=== PATIENT | male | born 1965 | race Caucasian/White ===

== ENCOUNTER 2019-01-28 13:46 | Inpatient (IN) | payer MEDICARE, MEDICAID ==
[~2019-01-28] VITALS: Ht 180.3 cm; Wt 85.8 kg
[~2019-01-28 13:46] MED LIST: ALBU2.5V NEB; PRED10TA PO
[2019-01-28] MEDS ORDERED: SODIUM CHLORIDE 0.9% 1,000ML IVBOLUS ONE (14:00)
[2019-01-28] MEDS ORDERED: SODIUM CHLORIDE FLUSH 10ML SYR IVF ONE (14:00)
--- NOTE | 2019-01-28 14:12 | NUR ---
PATIENT BIB [facility] FOR SI WITH PLAN TO OD, PATIENT SENT TO [facility] BY [facility], PD SENT PATIENT TO [facility] FOR BEING VERBALLY AGGRESSIVE. PATIENT UNCOOPERATIVE AT TIMES, EASILY REDIRECTED, ASSISTED TO BATHROOM, UNABLE TO URINATE FOR URINE SAMPLE, A+OX4. MULTIPLE BRUISING NOTED TO PATIENT'S UPPER/LOWER BACK. PATIENT 94% UPON ARRIVAL, DROPPED TO 80% RA, NOW 92% ON 2L NC. COMMUTATOR TESTER ON PATIENT, AWAITING MD ORDERS, CALL LIGHT WITHIN REACH.
[2019-01-28 14:27] LABS: BASOPHILS # (AUTO) 0.05 x10^3/uL (0-0.1); BASOPHILS % (AUTO) 1 % (0-1); EOSINOPHILS # (AUTO) 0.11 x10^3/uL (0-0.4); EOSINOPHILS % (AUTO) 1 % (1-7); LYMPHOCYTES # (AUTO) 1.85 x10^3/uL (1-3.4); LYMPHOCYTES % (AUTO) 17 % (22-44); MD NO; MEAN CORPUSCULAR HEMOGLOBIN 31.6 pg (27.5-34.5); MEAN CORPUSCULAR HGB CONC 33.6 g/dL (33.2-36.2); MEAN CORPUSCULAR VOLUME 93.9 fL (81-97); MEAN PLATELET VOLUME 7.6 fL (7.4-10.4); MONOCYTES # (AUTO) 0.55 x10^3/uL (0.2-0.8); MONOCYTES % (AUTO) 5 % (2-9); NEUTROPHILS # (AUTO) 8.06 x10^3/uL (1.8-6.8); NEUTROPHILS % (AUTO) 76 % (42-75); PLATELET COUNT 164 x10^3/uL (130-400); RED BLOOD COUNT 4.58 x10^6/uL (4.38-5.82); RED CELL DISTRIBUTION WIDTH 14.9 % (9.4-14.8)
--- NOTE | 2019-01-28 14:49 | NUR ---
PATIENT ASSISTED TO BEDSIDE, SMALL AMOUNT OF URINE COLLECTED AND WALKED TO LAB. PATIENT BACK TO BED, MULTIPLE ATTEMPTS TO GET UP OUT OF BED, PATIENT EDUCATED REGARDING NEED TO STAY IN BED DUE TO UNSTEADY GAIT, IV ESTABLISHED, AWAITING CT.
[2019-01-28 14:57] LABS: ANION GAP 11 mmol/L (5-15); CALCIUM 7.9 mg/dL (8.5-10.1); CHLORIDE 103 mmol/L (98-107)
[2019-01-28 15:01] LABS: SALICYLATE LEVEL 6.2 mg/dL (2.8-20.0)
--- NOTE | 2019-01-28 15:15 | NUR ---
PATIENT RIPPED CORDS OFF AND WALKED TO THE BATHROOM PER SITTER. PATIENT LAYING BACK IN BED, CT AWAITING LAB RESUTLS PRIOR TO CT. PATIENT UP NEXT. PATIENT NOW RESTING IN GURNEY, RESP EVEN/UNLABORED.
[2019-01-28 15:25] LABS: CULTURE INDICATED? YES; MICROSCOPIC INDICATED
--- NOTE | 2019-01-28 15:27 | NUR ---
PATIENT TO CT AT THIS TIME VIA JAZMINE HERNANDEZ.
[2019-01-28 15:34] LABS: AMPHETAMINE SCREEN, URINE Negative (Negative); BARBITURATE SCREEN, URINE Negative (Negative); BENZODIAZEPINE SCREEN, URINE Negative (Negative); CANNABINOID SCREEN, URINE Negative (Negative); COCAINE SCREEN, URINE Negative (Negative); METHADONE SCREEN, URINE Negative (Negative); OPIATE SCREEN, URINE Negative (Negative)
[2019-01-28] MEDS ORDERED: OMNIPAQUE 350 MG/ML, 100ML BOTTLE ONE (15:54)
--- NOTE | 2019-01-28 16:42 | NUR ---
BREATHALYZER-0.293 AT THIS TIME, PATIENT REPORTING BRUISING CAME FROM FALLING DOWN FLIGHT OF 6 STAIRS, VS UPDATED IN CHART, SITTER AT DOORWAY. PATIENT A+OX4. PATIENT REPORTS SI. RESP EVEN/UNLABORED, PATIENT PROVIDED CRACKERS WITH PEANUT BUTTER, DIET TRAY ORDERED PER REQUEST, ERP OKAY'D PATIENT TO HAVE FOOD. NADN. NO ADDITIONAL NEEDS AT THIS TIME.
--- NOTE | 2019-01-28 16:47 | NUR ---
PATIENT TO HAVE TELEPSYCH WHEN SOBER.
--- NOTE | 2019-01-28 17:30 | NUR ---
PATIENT RIPPED EVERYTHING OFF AT AMBULATED TO BATHROOM WITH SLOW STEADY GAIT. PATIENT BACK TO BED, ALL MONITORS TAKEN OFF DUE TO FALL HAZARD, GARAGE DOORS PULLED DOWN FOR SAFETY, AWAITING PATIENT TO BE SOBER PRIOR TO TELEPSYCH. ED DIET TRAY PROVIDED PER REQUEST, NO ADDITIONAL NEEDS AT THIS TIME.
--- NOTE | 2019-01-28 17:32 | NUR ---
SPOKE TO ERP, PATIENT 88-89% RA, PATIENT OKAY TO BE OFF OXYGEN PER ERP. BREATHING TREATMENT ORDERED. AWAITING RT. PATIENT SITTING IN GURNEY, EATING DINNER, RESP EVEN/UNLABORED, SKIN PINK, WARM, DRY. JAZMINE. Addendum: 01/28/19 at 1746 by CALDERON HX OF COPD, PATIENT ALWAYS AT 88-89% RA PER PATIENT.
[2019-01-28] MEDS: PLEASE ENTER HEIGHT AND WEIGHT MC SCH (17:48)
--- NOTE | 2019-01-28 17:54 | NUR ---
MEDICATION ADMINISTERED PER ORDER, RT AT BEDSIDE, NADN. XRAY ORDERED, SITTER REMAINS AT DOORWAY WITH PATIENT IN SIGHT.
[2019-01-28] MEDS ORDERED: ALBUTEROL/IPRATROPIUM 2.5MG/0.5MG, 3 ML NPPB ONE (18:00)
--- NOTE | 2019-01-28 19:07 | NUR ---
Pt report from Fadumo edwards. This rn to assume care of pt. No immediate needs from pt. Kat lnadrum in place. [facility].
--- NOTE | 2019-01-28 19:10 | NUR ---
PATIENT ANXIOUS, SITTING IN GURNEY, REPORT TO JENNIE PERDOMO. CONOR TO SPEAK WITH MD REGARDING ORDER FOR PRN MEDICATION. NADN. RESP EVEN/UNLABORED. SITTER REMAINS AT BEDSIDE WITH PATIENT IN SIGHT.
--- NOTE | 2019-01-28 19:41 | NUR ---
Pt states hx of sz w/ withdrawal to etoh. Goal for pt is to sober before psych re-evaluation. Pt appearing increasingling anxious, sweating, and c/o of miller. notified. Awaiting new orders.
[2019-01-28] MEDS ORDERED: THIAMINE 100MG TABLET PO ONE (20:00)
[2019-01-28] MEDS ORDERED: LORazepam 2 MG/ML, 1ML ONE (20:01)
[2019-01-28] MEDS ORDERED: THIAMINE 100MG TABLET ONE (20:01)
[2019-01-28] MEDS: LORazepam 2 MG/ML, 1ML IVPush PRN ×2 (20:05→20:30)
--- NOTE | 2019-01-28 20:09 | NUR ---
Medicated per mar. Very pleasant demeanor at this time. No other concerns from pt.
--- NOTE | 2019-01-28 21:12 | NUR ---
Pt watching tv. No apparent signs of imminent d/t.
--- NOTE | 2019-01-28 21:53 | NUR ---
3E PSYCHIATRIST DECLINED ADMISSION PT "WILL DISRUPT THE MILIEU"
--- NOTE | 2019-01-28 22:25 | NUR ---
Pt watching tv. No apparent signs of imminent d/t. Pt no longer sweating and does not think he "feels any tremors coming."
--- NOTE | 2019-01-28 23:56 | NUR ---
Pt watching tv. No apparent signs of imminent d/t. Pt no longer sweating and does not think he "feels any tremors coming."
--- NOTE | 2019-01-29 00:41 | NUR ---
This rn attempted to breathalyze pt. Pt educated multiple times on how to utilize breathalyzer. Pt not successful multiple times. aware.
--- NOTE | 2019-01-29 01:57 | NUR ---
NADN. No immediate needs from pt. Sleeping comfortably. Rr even and unlabored.
--- NOTE | 2019-01-29 02:58 | NUR ---
NADN. No immediate needs from pt. Sleeping comfortably. Rr even and unlabored.
--- NOTE | 2019-01-29 03:12 | NUR ---
This rn attempted to breathalyze. Pt not able to perform appropriately. Awaiting under legal limit for telepsych.
--- NOTE | 2019-01-29 04:04 | NUR ---
NADN. No immediate needs from pt. Sleeping comfortably. Rr even and unlabored.
--- NOTE | 2019-01-29 05:18 | NUR ---
NADN. No immediate needs from pt. Sleeping comfortably. Rr even and unlabored.
--- NOTE | 2019-01-29 05:26 | NUR ---
Soc initiated at this time.
--- NOTE | 2019-01-29 05:54 | NUR ---
Soc called back. Pt recommended to be put on a hold. Awaiting ERP dispo.
--- NOTE | 2019-01-29 05:56 | NUR ---
Hospital bed requested.
--- NOTE | 2019-01-29 06:51 | NUR ---
REPORT TAKEN FROM JENNIE PERDOMO. PT RESTING ON [facility]. RESPIRATIONS EVEN AND UNLABORED. JAZMINE. SITTER IN HALLWAY. ROOM SECURE. HOSPITAL BED HAS BEEN ORDERED. MEAL TRAY HAS BEEN ORDERED.
[2019-01-29] MEDS: PLEASE ENTER HEIGHT AND WEIGHT MC SCH (07:29)
[2019-01-29] MEDS ORDERED: LORazepam 2 MG/ML, 1ML ONE ×2 (07:32→08:37)
[2019-01-29] MEDS: LORazepam 2 MG/ML, 1ML IVPush PRN ×2 (07:33→08:39)
--- NOTE | 2019-01-29 07:36 | NUR ---
PT MEDICATED PER EMAR. RESTING ON GURNEY. NADN. PROVIDED WITH WATER. SITTER IN HALLWAY. ROOM SECURE.
--- NOTE | 2019-01-29 08:34 | NUR ---
PT STILL WITH TREMORS STATING HE IS NAUSEAS AND HAS SKINNER. WILL MEDICATE WITH 1 MORE MG OF ATIVAN. ATTEMPTING TO EAT BREAKFAST NOW. SITTER IN HALLWAY. ROOM SECURE.
--- NOTE | 2019-01-29 08:42 | NUR ---
PT MEDICATED PER EMAR. RESTING ON GURNEY. NADN. DENIES FURTHER NEEDS. SITTER IN HALLWAY. ROOM SECURE. PT CONTINUES TO ATTEMPT TO EAT BREAKFAST.
--- NOTE | 2019-01-29 08:55 | NUR ---
TASK RN: PT RESTING ON [facility]ARY. JAZMINE. SITTER REMAINS AT BEDSIDE. ROOM REMAINS SECURE.
--- NOTE | 2019-01-29 09:19 | NUR ---
PT AMBULATED WITH UNSTEADY GAIT TO BATHROOM- HELPED WITH 1 ASSIST. PT NOW RESTING ON GURNEY. CONNECTED TO MONITOR. PT CONTINUES TO BE TREMULOUS. MD AWARE AND COMING TO ASSESS PT. PT STATES HE CONTINUES TO FEEL NAUSEAS AND HAS A HAD. PT DIAPHORETIC. TACHYCARDIC. RESTING ON GURNEY. SITTER IN HALLWAY.
--- NOTE | 2019-01-29 09:23 | NUR ---
MD AT BEDSIDE ASSESSING PT NOW. PT PLACED ON 1L NC TO KEEP SATS AT 89-90% PER MD ORDER.
--- NOTE | 2019-01-29 09:58 | NUR ---
PT ASLEEP ON [facility]. NADN. [place]. SITTER IN HALLWAY.
[2019-01-29] MEDS ORDERED: SODIUM CHLORIDE FLUSH 10ML SYR IVF PRN (10:00)
--- NOTE | 2019-01-29 10:50 | NUR ---
REPORT GIVEN TO JENNIE GREENBERG.
[2019-01-29 11:29] VITALS: BP 132/82
[2019-01-29] MEDS ORDERED: RISP1SOL5 IM/IV (14:52)
[2019-01-29] MEDS ORDERED: TRAZ-137 PO (14:54)
[2019-01-29 15:14] VITALS: BP 135/76
[2019-01-29] MEDS ORDERED: DOCUSATE 100 MG CAPSULE PO PRN (15:30)
[2019-01-29] MEDS ORDERED: POLYETHYLENE GLYCOL 17 GM PACKET PO PRN (15:30)
[2019-01-29] MEDS ORDERED: LORazepam 2 MG/ML, 1ML IV PRN ×4 (15:30)
[2019-01-29] MEDS ORDERED: LORazepam 1MG TABLET PO PRN ×3 (15:30)
[2019-01-29] MEDS ORDERED: BISACODYL 10 MG SUPP PR PRN (15:30)
[2019-01-29] MEDS ORDERED: ONDANSETRON ODT 4 MG PO PRN (15:30)
[2019-01-29] MEDS ORDERED: THIAMINE 200 MG, MVI ADULT 10 ML, FOLIC ACID 1 MG in D5%-0.9% NACL 1,000 ML IV SCH (15:30)
[2019-01-29] MEDS ORDERED: hydrALAzine 20 MG/ML, 1ML IVPush PRN (15:30)
[2019-01-29] MEDS ORDERED: ONDANSETRON 2MG/ML, 2ML IVPush PRN (15:30)
[2019-01-29 15:47] LABS: FREE T4 (FREE THYROXINE) 0.86 ng/dL (0.76-1.46)
[2019-01-29] MEDS: HEPARIN 5,000 UNITS/ML, 1ML SQ SCH (15:55)
[2019-01-29] MEDS: NICOTINE 7 MG/24 HR PATCH.TD24 TD SCH (15:57)
[2019-01-29 16:00] LABS: HEMOGLOBIN A1C 5.4 % (4.2-6.3)
[2019-01-29] MEDS ORDERED: ALBUTEROL/IPRATROPIUM 2.5MG/0.5MG, 3 ML NPPB PRN (16:30)
[2019-01-29 19:59] VITALS: BP 144/83
[2019-01-29] MEDS: TRAZODONE 100MG TABLET PO SCH (20:34)
[2019-01-29] MEDS: LORazepam 1MG TABLET PO PRN (20:39)
[2019-01-30] MEDS: HEPARIN 5,000 UNITS/ML, 1ML SQ SCH ×3 (00:24→16:40)
[2019-01-30 01:06] VITALS: BP 114/70
[2019-01-30 05:18] LABS: BASOPHILS # (AUTO) 0.02 x10^3/uL (0-0.1); BASOPHILS % (AUTO) 0 % (0-1); EOSINOPHILS # (AUTO) 0.17 x10^3/uL (0-0.4); EOSINOPHILS % (AUTO) 3 % (1-7); LYMPHOCYTES # (AUTO) 1.76 x10^3/uL (1-3.4); LYMPHOCYTES % (AUTO) 28 % (22-44); MD NO; MEAN CORPUSCULAR HEMOGLOBIN 31.9 pg (27.5-34.5); MEAN CORPUSCULAR HGB CONC 33.4 g/dL (33.2-36.2); MEAN CORPUSCULAR VOLUME 95.3 fL (81-97); MEAN PLATELET VOLUME 8.4 fL (7.4-10.4); MONOCYTES # (AUTO) 0.37 x10^3/uL (0.2-0.8); MONOCYTES % (AUTO) 6 % (2-9); NEUTROPHILS # (AUTO) 4.08 x10^3/uL (1.8-6.8); NEUTROPHILS % (AUTO) 64 % (42-75); PLATELET COUNT 122 x10^3/uL (130-400); RED BLOOD COUNT 3.99 x10^6/uL (4.38-5.82); RED CELL DISTRIBUTION WIDTH 15.5 % (9.4-14.8)
[2019-01-30 05:30] LABS: ALBUMIN 3.1 g/dL (3.4-5.0); ANION GAP 7 mmol/L (5-15); CALCIUM 7.7 mg/dL (8.5-10.1); CHLORIDE 104 mmol/L (98-107)
[2019-01-30 05:37] LABS: ALANINE AMINOTRANSFERASE 224 U/L (12-78); ALKALINE PHOSPHATASE 76 U/L (45-117); BILIRUBIN,TOTAL 1.4 mg/dL (0.2-1.0); CHOL/HDL RATIO 2.4; CHOLESTEROL, TOTAL 151 mg/dL (140-239); CREATININE 0.62 mg/dL (0.7-1.3); HDL CHOL % 41 % (26-37); HDL CHOLESTEROL (DIRECT) 62 mg/dL (40-60); LDL CHOLESTEROL,CALCULATED 74 mg/dL (54-169); LDL/HDL RATIO 1.2 (0.5-3.0); TOTAL PROTEIN 6.2 g/dL (6.4-8.2); TRIGLYCERIDES 74 mg/dL (50-200); VLDL CHOLESTEROL 15 mg/dL (0-25)
[2019-01-30 06:47] VITALS: BP 134/77
[2019-01-30 12:18] VITALS: BP 115/76
[2019-01-30] MEDS: FOLIC ACID 1 MG TABLET PO SCH (12:35)
[2019-01-30] MEDS: THIAMINE 100MG TABLET PO SCH (12:35)
[2019-01-30] MEDS: MULTIVITAMIN 1 TABLET PO SCH (12:36)
[2019-01-30] MEDS: LORazepam 1MG TABLET PO PRN (13:07)
[2019-01-30 13:59] VITALS: BP 119/75
[2019-01-30] MEDS: PROMETHAZINE 25 MG/ML, 1ML IM PRN (14:47)
[2019-01-30] MEDS: NICOTINE 7 MG/24 HR PATCH.TD24 TD SCH ×2 (15:27→21:37)
[2019-01-30] MEDS: LORazepam 2 MG/ML, 1ML IV PRN ×3 (17:50→21:34)
[2019-01-30 19:46] VITALS: BP 117/76
[2019-01-30] MEDS: TRAZODONE 100MG TABLET PO SCH (20:02)
[2019-01-31] MEDS: HEPARIN 5,000 UNITS/ML, 1ML SQ SCH ×4 (00:20→16:00)
[2019-01-31 00:49] VITALS: BP 120/80
[2019-01-31 08:13] VITALS: BP 114/74
[2019-01-31] MEDS: SERTRALINE 50MG TABLET PO SCH (09:59)
[2019-01-31] MEDS: BUPROPION SR 150 MG TABLET PO SCH (09:59)
[2019-01-31] MEDS: FOLIC ACID 1 MG TABLET PO SCH (09:59)
[2019-01-31] MEDS: MULTIVITAMIN 1 TABLET PO SCH (09:59)
[2019-01-31] MEDS: THIAMINE 100MG TABLET PO SCH (09:59)
[2019-01-31 10:42] LABS: ALANINE AMINOTRANSFERASE 200 U/L (12-78); ALBUMIN 3.2 g/dL (3.4-5.0); ANION GAP 7 mmol/L (5-15); CHLORIDE 106 mmol/L (98-107); CREATININE 0.56 mg/dL (0.7-1.3)
[2019-01-31 10:44] LABS: ALKALINE PHOSPHATASE 73 U/L (45-117); BILIRUBIN,TOTAL 0.9 mg/dL (0.2-1.0); TOTAL PROTEIN 6.6 g/dL (6.4-8.2)
[2019-01-31] MEDS: PROMETHAZINE 25 MG/ML, 1ML IM PRN (11:41)
[2019-01-31 12:07] VITALS: BP 100/66
[2019-01-31] MEDS: LORazepam 0.5MG TABLET PO PRN (15:42)
[2019-01-31 19:33] VITALS: BP 110/70
[2019-01-31] MEDS: OXYcodone IR 5MG TABLET PO PRN (19:48)
[2019-01-31] MEDS: TRAZODONE 100MG TABLET PO SCH (20:03)
[2019-01-31] MEDS: NICOTINE 7 MG/24 HR PATCH.TD24 TD SCH (20:05)
[2019-02-01 01:31] VITALS: BP 109/72
[2019-02-01] MEDS: OXYcodone IR 5MG TABLET PO PRN (05:48)
[2019-02-01 06:14] VITALS: BP 89/53
[2019-02-01 06:28] VITALS: BP 93/55
[2019-02-01 07:54] VITALS: BP 91/58
[2019-02-01] MEDS: THIAMINE 100MG TABLET PO SCH (08:47)
[2019-02-01] MEDS: BUPROPION SR 150 MG TABLET PO SCH (08:47)
[2019-02-01] MEDS: FOLIC ACID 1 MG TABLET PO SCH (08:47)
[2019-02-01] MEDS: SERTRALINE 50MG TABLET PO SCH (08:47)
[2019-02-01] MEDS: MULTIVITAMIN 1 TABLET PO SCH (08:47)
[2019-02-01] MEDS: HEPARIN 5,000 UNITS/ML, 1ML SQ SCH ×4 (08:47→23:44)
[2019-02-01] MEDS: LORazepam 0.5MG TABLET PO PRN (12:20)
[2019-02-01] MEDS: AMOXICILLIN/CLAV 875-125MG TABLET PO SCH ×2 (12:51→20:40)
[2019-02-01 13:32] VITALS: BP 104/71
[2019-02-01 19:16] VITALS: BP 104/69
[2019-02-01] MEDS: TRAZODONE 100MG TABLET PO SCH (20:40)
[2019-02-01] MEDS: NICOTINE 7 MG/24 HR PATCH.TD24 TD SCH (22:02)
[2019-02-02 01:36] VITALS: BP 100/67
[2019-02-02 06:49] VITALS: BP 111/74
[2019-02-02 08:26] LABS: ANION GAP 5 mmol/L (5-15); CALCIUM 8.5 mg/dL (8.5-10.1); CHLORIDE 108 mmol/L (98-107)
[2019-02-02] MEDS: HEPARIN 5,000 UNITS/ML, 1ML SQ SCH ×2 (09:22→17:13)
[2019-02-02] MEDS: THIAMINE 100MG TABLET PO SCH (09:22)
[2019-02-02] MEDS: AMOXICILLIN/CLAV 875-125MG TABLET PO SCH ×2 (09:22→20:14)
[2019-02-02] MEDS: FOLIC ACID 1 MG TABLET PO SCH (09:22)
[2019-02-02] MEDS: BUPROPION SR 150 MG TABLET PO SCH (09:22)
[2019-02-02] MEDS: SERTRALINE 50MG TABLET PO SCH (09:22)
[2019-02-02] MEDS: MULTIVITAMIN 1 TABLET PO SCH (09:22)
[2019-02-02 12:19] VITALS: BP 95/61
[2019-02-02] MEDS: PROMETHAZINE 25 MG/ML, 1ML IM PRN (12:39)
[2019-02-02 18:31] VITALS: BP 106/67
[2019-02-02] MEDS: TRAZODONE 100MG TABLET PO SCH (20:14)
[2019-02-02] MEDS: NICOTINE 7 MG/24 HR PATCH.TD24 TD SCH (20:15)
[2019-02-03 00:43] VITALS: BP 95/60
[2019-02-03] MEDS: HEPARIN 5,000 UNITS/ML, 1ML SQ SCH ×3 (01:35→17:04)
[2019-02-03 07:09] VITALS: BP 107/69
[2019-02-03] MEDS: THIAMINE 100MG TABLET PO SCH (09:00)
[2019-02-03] MEDS: AMOXICILLIN/CLAV 875-125MG TABLET PO SCH ×2 (10:05→20:13)
[2019-02-03] MEDS: SERTRALINE 50MG TABLET PO SCH (10:05)
[2019-02-03] MEDS: MULTIVITAMIN 1 TABLET PO SCH (10:06)
[2019-02-03] MEDS: BUPROPION SR 150 MG TABLET PO SCH (10:06)
[2019-02-03] MEDS: FOLIC ACID 1 MG TABLET PO SCH (10:06)
[2019-02-03 14:06] VITALS: BP 101/66
[2019-02-03 19:11] VITALS: BP 104/75
[2019-02-03] MEDS: TRAZODONE 100MG TABLET PO SCH (20:13)
[2019-02-03] MEDS: NICOTINE 7 MG/24 HR PATCH.TD24 TD SCH (20:20)
[2019-02-04 01:42] VITALS: BP 113/76
[2019-02-04] MEDS: HEPARIN 5,000 UNITS/ML, 1ML SQ SCH ×3 (01:58→17:02)
[2019-02-04 07:46] VITALS: BP 110/73
[2019-02-04] MEDS: FOLIC ACID 1 MG TABLET PO SCH (09:08)
[2019-02-04] MEDS: AMOXICILLIN/CLAV 875-125MG TABLET PO SCH ×2 (09:08→20:12)
[2019-02-04] MEDS: THIAMINE 100MG TABLET PO SCH (09:08)
[2019-02-04] MEDS: MULTIVITAMIN 1 TABLET PO SCH (09:09)
[2019-02-04] MEDS: SERTRALINE 50MG TABLET PO SCH (09:09)
[2019-02-04] MEDS: BUPROPION SR 150 MG TABLET PO SCH (09:09)
[2019-02-04 12:35] VITALS: BP 114/76
[2019-02-04] MEDS ORDERED: FLU VACC QS2019-20 36MOS UP/PF 0.5 ML IM-VACC ONE (17:30)
[2019-02-04 19:24] VITALS: BP 113/71
[2019-02-04] MEDS: TRAZODONE 100MG TABLET PO SCH (20:11)
[2019-02-04] MEDS: NICOTINE 7 MG/24 HR PATCH.TD24 TD SCH (20:12)
[2019-02-05] MEDS: HEPARIN 5,000 UNITS/ML, 1ML SQ SCH ×2 (00:48→09:03)
[2019-02-05 00:52] VITALS: BP 113/72
[2019-02-05 06:25] VITALS: BP 91/63
[2019-02-05] MEDS: FOLIC ACID 1 MG TABLET PO SCH (09:01)
[2019-02-05] MEDS: AMOXICILLIN/CLAV 875-125MG TABLET PO SCH (09:01)
[2019-02-05] MEDS: MULTIVITAMIN 1 TABLET PO SCH (09:02)
[2019-02-05] MEDS: SERTRALINE 50MG TABLET PO SCH (09:02)
[2019-02-05] MEDS: BUPROPION SR 150 MG TABLET PO SCH (09:02)
[2019-02-05] MEDS: THIAMINE 100MG TABLET PO SCH (09:02)
[2019-02-05] MEDS ORDERED: BUPR150T73 PO (11:54)
[2019-02-05] MEDS ORDERED: FOLI-17 PO (11:54)
[2019-02-05] MEDS ORDERED: MULT1TAB60 PO (11:54)
[2019-02-05] MEDS ORDERED: THIA100T67 PO (11:54)
[2019-02-05] MEDS ORDERED: AMOX1TAB12 PO (11:54)
[2019-02-05] MEDS ORDERED: SERT50TA28 PO (11:54)
[2019-02-05 12:14] VITALS: BP 100/67
== END 2019-02-05 13:17 | disposition home or self-care (01) | DRG 885 ==
LOC: ED 22:10 → EDIP 01-29 10:47 → 4WST 01-29 11:08 → DCLOUNGE 02-05 12:50
PROVIDERS: ADMIT Internal Medicine; ATTEND Internal Medicine
DX: F25.9 Schizoaffective disorder, unspecified (principal); F10.239 Alcohol dependence with withdrawal, unspecified; R45.851 Suicidal ideations; F10.229 Alcohol dependence with intoxication, unspecified; F12.10 Cannabis abuse, uncomplicated; F17.210 Nicotine dependence, cigarettes, uncomplicated; F41.9 Anxiety disorder, unspecified; K76.0 Fatty (change of) liver, not elsewhere classified; R58 Hemorrhage, not elsewhere classified; J43.9 Emphysema, unspecified; S30.0XXA Contusion of lower back and pelvis, initial encounter; X58.XXXA Exposure to other specified factors, initial encounter; Y93.89 Activity, other specified; Y92.89 Other specified places as the place of occurrence of the external cause; Y99.8 Other external cause status
CPT/HCPCS: 36415; 71045; 74177; 80048; 80053; 80061; 80074; 80307; 81001; 82040; 83036; 83735; 84100; 84439; 84443; 85025; 86706; 87086; 90686; 94640; 99285; G0378; J1644; J2550; J3411; J7042; J7620; Q0162; Q9967; J2060; J7512

== ENCOUNTER 2019-03-16 14:15 | Emergency (ER) | payer MEDICARE, MEDICAID ==
[~2019-03-16] VITALS: Ht 180.3 cm; Wt 82.4 kg
[~2019-03-16 14:15] MED LIST changes: +AMOX1TAB12 PO; +BUPR150T73 PO; +FOLI-17 PO; +MULT1TAB60 PO; +RISP1SOL5 IM/IV; +SERT50TA28 PO; +THIA100T67 PO; +TRAZ-137 PO
[2019-03-16 14:17] VITALS: BP 138/86
== END 2019-03-16 15:11 | disposition home or self-care (01) ==
LOC: ED 14:49
DX: F10.220 Alcohol dependence with intoxication, uncomplicated (principal); J44.9 Chronic obstructive pulmonary disease, unspecified; Y90.9 Presence of alcohol in blood, level not specified
CPT/HCPCS: 99283

== ENCOUNTER 2019-03-25 10:46 | Emergency (ER) | payer MEDICARE, MEDICAID ==
[~2019-03-25] VITALS: Ht 177.8 cm; Wt 72.9 kg
[2019-03-25 10:56] VITALS: BP 138/82
--- NOTE | 2019-03-25 11:14 | NUR ---
pt in gown, room is secured. ua sent to lab, one bag of belongings in locker with label and name written
[2019-03-25 12:00] LABS: BASOPHILS # (AUTO) 0.02 x10^3/uL (0-0.1); BASOPHILS % (AUTO) 0 % (0-1); EOSINOPHILS # (AUTO) 0.06 x10^3/uL (0-0.4); EOSINOPHILS % (AUTO) 1 % (1-7); LYMPHOCYTES # (AUTO) 1.67 x10^3/uL (1-3.4); LYMPHOCYTES % (AUTO) 34 % (22-44); MD NO; MEAN CORPUSCULAR HEMOGLOBIN 33.7 pg (27.5-34.5); MEAN CORPUSCULAR HGB CONC 33.4 g/dL (33.2-36.2); MEAN CORPUSCULAR VOLUME 100.9 fL (81-97); MEAN PLATELET VOLUME 7.5 fL (7.4-10.4); MONOCYTES # (AUTO) 0.37 x10^3/uL (0.2-0.8); MONOCYTES % (AUTO) 8 % (2-9); NEUTROPHILS # (AUTO) 2.76 x10^3/uL (1.8-6.8); NEUTROPHILS % (AUTO) 57 % (42-75); PLATELET COUNT 134 x10^3/uL (130-400); RED CELL DISTRIBUTION WIDTH 16.7 % (9.4-14.8)
[2019-03-25] MEDS ORDERED: SODIUM CHLORIDE FLUSH 10ML SYR IVF ONE (12:00)
[2019-03-25] MEDS ORDERED: THIAMINE 100MG TABLET PO ONE (12:00)
[2019-03-25 12:10] LABS: ANION GAP 13 mmol/L (5-15); CALCIUM 7.9 mg/dL (8.5-10.1); CHLORIDE 98 mmol/L (98-107)
[2019-03-25] MEDS ORDERED: THIAMINE 100MG TABLET ONE (12:19)
[2019-03-25 12:22] LABS: ALANINE AMINOTRANSFERASE 93 U/L (12-78); ALKALINE PHOSPHATASE 81 U/L (45-117); BILIRUBIN,TOTAL 0.5 mg/dL (0.2-1.0); CREATININE 0.73 mg/dL (0.7-1.3); TOTAL PROTEIN 7.4 g/dL (6.4-8.2)
[2019-03-25 12:49] LABS: AMPHETAMINE SCREEN, URINE Negative (Negative); BARBITURATE SCREEN, URINE Negative (Negative); BENZODIAZEPINE SCREEN, URINE Negative (Negative); CANNABINOID SCREEN, URINE Negative (Negative); COCAINE SCREEN, URINE Negative (Negative); METHADONE SCREEN, URINE Negative (Negative); OPIATE SCREEN, URINE Negative (Negative)
[2019-03-25] MEDS ORDERED: LORazepam 2 MG/ML, 1ML IVPush PRN (13:00)
--- NOTE | 2019-03-25 13:25 | NUR ---
pt resting in room. sitter in hallway. pt consumed lunch. poc is to wait till sober for eval. made aware of pts 30 year drinking hx.
--- NOTE | 2019-03-25 13:54 | NUR ---
pt had on episode of emisis in which he puked on the floor. blankets, gown and bedding were changed. room was cleaned. pt denies nausea at this time.
--- NOTE | 2019-03-25 14:27 | NUR ---
pt requesting nicotine patch. provider made aware. no orders recieved.
--- NOTE | 2019-03-25 14:54 | NUR ---
Bedside report from Otf RN, pt care assumed at this time. Pt pacing room, stating "I'm ready to go home" Pt also asking staff who walk past his room for a cigarette. Pt denying SI & HI at this time. Sitter at doorway, pt's belongings secured by previous RN, pt room suicide secured, sitter is at doorway.
--- NOTE | 2019-03-25 15:55 | NUR ---
Pt continues to endorse that he is ready to go home and does not want further evaluation. Pt denying SI & HI at this time. Pt in bed in suicide secured room, sitter is at doorway.
--- NOTE | 2019-03-25 16:52 | NUR ---
MD Beckwith has been at bedside to evaluate pt who continues to state that he is not suicidal or homocidal. Pt states that he has an appointment with his therapist this week. MD Beckwith to discharge pt, pt's belongings returned & pt given a bus pass.
== END 2019-03-25 17:46 | disposition home or self-care (01) ==
LOC: ED 14:22
DX: F10.129 Alcohol abuse with intoxication, unspecified (principal); F19.94 Other psychoactive substance use, unspecified with psychoactive substance-induced mood disorder; F31.9 Bipolar disorder, unspecified; J44.9 Chronic obstructive pulmonary disease, unspecified; Z72.89 Other problems related to lifestyle; Y90.8 Blood alcohol level of 240 mg/100 ml or more
CPT/HCPCS: 36415; 71045; 80053; 80307; 85025; 99284

== ENCOUNTER 2019-06-04 23:02 | Emergency (ER) | payer MEDICARE, MEDICAID ==
[~2019-06-04] VITALS: Ht 180.3 cm; Wt 78.0 kg
[~2019-06-04 23:02] MED LIST changes: -TRAZ-137 PO; +TRAZ-175 PO
--- NOTE | 2019-06-04 23:08 | NUR ---
54 Y/O MALE RAJAN FRAZIER FROM HOME FOR A GLF. HEAVY ETOH USE. PT DID STRIKE HIS HEAD ON THE FLOOR. DENIES ANY LOC HOWEVER DOES NOT REMEMBER THE EVENT. PT DOES HAVE AN ABRASION ABOVE HIS RIGHT EYE. PT ALSO HAS BRUISING NOTED TO THE LEFT FLANK AREA FROM A FALL LAST WEEK IN WHICH HE SUFFERED FRACTURED RIBS. PT IS A DAILY DRINKER. RA SAT 82%, PLACED ON O2 VIA NC AT 3LPM, INCREASED TO 95%. PT IS ALERT AND ORIENTED, STATING "I DON'T THINK I NEED TO BE HERE". PT EDUCATED ON THE TESTS BEING ORDERED AND THE NEEDS FOR THOSE. PT AGREES TO CARE AND IN VIEW OF NURSES STATION. DENIES ANY OTHER PAST MEDICAL HX. DENIES TAKING ANY ANTICOAGULANTS. ALL OTHER VITALS STABLE. SANCHEZ Cristino CONTINUE TO MONITOR.
--- NOTE | 2019-06-04 23:14 | NUR ---
PT TO CT
--- NOTE | 2019-06-04 23:45 | NUR ---
PT AMBULATORY TO RESTROOM X 2 ASSIST. ATTEMPTED TO VOID IN URINAL WITHOUT SUCCESS, BACK TO BED WITHOUT DIFFICULTY. NO COMPLAINTS. WITHIN SIGHT OF NURSES STATION.
--- NOTE | 2019-06-05 01:29 | NUR ---
PT SLEEPING, RESP=UNLABORED. O2 SAT 95% ON 3LM NC.
[2019-06-05 02:13] LABS: BASOPHILS # (AUTO) 0.02 x10^3/uL (0-0.1); BASOPHILS % (AUTO) 0 % (0-1); EOSINOPHILS # (AUTO) 0.09 x10^3/uL (0-0.4); EOSINOPHILS % (AUTO) 2 % (1-7); LYMPHOCYTES # (AUTO) 2.31 x10^3/uL (1-3.4); LYMPHOCYTES % (AUTO) 41 % (22-44); MD NO; MEAN CORPUSCULAR HGB CONC 34.3 g/dL (33.2-36.2); MEAN CORPUSCULAR VOLUME 101.9 fL (81-97); MEAN PLATELET VOLUME 7.7 fL (7.4-10.4); MONOCYTES # (AUTO) 0.65 x10^3/uL (0.2-0.8); MONOCYTES % (AUTO) 12 % (2-9); NEUTROPHILS # (AUTO) 2.52 x10^3/uL (1.8-6.8); NEUTROPHILS % (AUTO) 45 % (42-75); PLATELET COUNT 233 x10^3/uL (130-400); RED BLOOD COUNT 3.43 x10^6/uL (4.38-5.82); RED CELL DISTRIBUTION WIDTH 14.3 % (9.4-14.8)
[2019-06-05 02:24] LABS: ALANINE AMINOTRANSFERASE 45 U/L (12-78); ALBUMIN 3.5 g/dL (3.4-5.0); ANION GAP 9 mmol/L (5-15); CALCIUM 7.2 mg/dL (8.5-10.1); CHLORIDE 97 mmol/L (98-107); CREATININE 0.62 mg/dL (0.7-1.3)
[2019-06-05 02:26] LABS: ALKALINE PHOSPHATASE 63 U/L (45-117); BILIRUBIN,TOTAL 0.3 mg/dL (0.2-1.0); TOTAL PROTEIN 6.3 g/dL (6.4-8.2)
[2019-06-05] MEDS ORDERED: CALCIUM CARBONATE 500 MG TABLET PO ONE (03:00)
[2019-06-05] MEDS ORDERED: SODIUM CHLORIDE 1 GM TABLET PO SCH (03:00)
--- NOTE | 2019-06-05 03:31 | NUR ---
UNABLE TO WAKE PT UP TO ADMINSTER MEDICATIONS SAFELY. PT ATTEMPTS TO OPEN EYES BUT DOES NOT HAVE ANY OTHER RESPONSE TO VERBAL OR TACTILE STIMULI .
--- NOTE | 2019-06-05 04:07 | NUR ---
PT CONTINUES TO SLEEP, RESP=UNLABORED. VS UPDATED.
--- NOTE | 2019-06-05 04:32 | NUR ---
REPORT TO JENNIE CHEN. PT MOVED TO ROOM 18.
--- NOTE | 2019-06-05 04:34 | NUR ---
Pt moved to room 18. When attempting to eval patient, he states "the animal house" brought him here because "duh." will continue to monitor.
[2019-06-05 06:06] LABS: BASOPHILS # (AUTO) 0.03 x10^3/uL (0-0.1); BASOPHILS % (AUTO) 1 % (0-1); EOSINOPHILS # (AUTO) 0.13 x10^3/uL (0-0.4); EOSINOPHILS % (AUTO) 3 % (1-7); LYMPHOCYTES # (AUTO) 2.13 x10^3/uL (1-3.4); LYMPHOCYTES % (AUTO) 45 % (22-44); MD NO; MEAN CORPUSCULAR HEMOGLOBIN 34.7 pg (27.5-34.5); MEAN CORPUSCULAR VOLUME 102.3 fL (81-97); MEAN PLATELET VOLUME 7.4 fL (7.4-10.4); MONOCYTES # (AUTO) 0.55 x10^3/uL (0.2-0.8); MONOCYTES % (AUTO) 12 % (2-9); NEUTROPHILS # (AUTO) 1.88 x10^3/uL (1.8-6.8); NEUTROPHILS % (AUTO) 40 % (42-75); PLATELET COUNT 237 x10^3/uL (130-400); RED BLOOD COUNT 3.56 x10^6/uL (4.38-5.82); RED CELL DISTRIBUTION WIDTH 14.3 % (9.4-14.8)
--- NOTE | 2019-06-05 06:16 | NUR ---
Pt found ambulating in hallway. Escorted back to room, pulse ox of 81% on RA. Pt A&Ox4, put on 4L nasal cannula.
[2019-06-05 07:25] VITALS: BP 104/62
--- NOTE | 2019-06-05 07:26 | NUR ---
REPORT FROM RIKA RN, ASSUMED CARE OF PT, PT CURRENTLY RESTING ON [facility]. VSS. PT TO TRANSFER TO [facility]. PT PLACED IN HOSPITAL GOWN
--- NOTE | 2019-06-05 07:51 | NUR ---
PT ADAMENT TO LEAVE AMA, STATES "YOU GUYS ARE JUST GREAT BUT I NEED TO GO HOME AND I FEEL OK" PT DEMONSTRATING ABILITY TO AMBULATE, PT DRESSED SELF. PT SATING 99% ON RA. PT AMBULATED TO EXIT, PT REFUSES AT THIS TIME TO WAIT FOR ER DC/AMA PAPERS. ER UPDATED
== END 2019-06-05 08:01 | disposition left against medical advice (07) ==
LOC: ED 06-05 01:19
DX: S22.42XA Multiple fractures of ribs, left side, initial encounter for closed fracture (principal); S00.03XA Contusion of scalp, initial encounter; S00.83XA Contusion of other part of head, initial encounter; S20.212A Contusion of left front wall of thorax, initial encounter; F10.229 Alcohol dependence with intoxication, unspecified; R41.82 Altered mental status, unspecified; J90 Pleural effusion, not elsewhere classified; R09.02 Hypoxemia; J44.9 Chronic obstructive pulmonary disease, unspecified; W18.39XA Other fall on same level, initial encounter; Y93.89 Activity, other specified; Y92.89 Other specified places as the place of occurrence of the external cause; Y99.8 Other external cause status; Y90.0 Blood alcohol level of less than 20 mg/100 ml
CPT/HCPCS: 36415; 70450; 71045; 71250; 80053; 80307; 83690; 85025; 99285

== ENCOUNTER 2019-06-06 12:14 | Emergency (ER) | payer MEDICARE, MEDICAID ==
[~2019-06-06] VITALS: Ht 177.8 cm; Wt 75.6 kg
--- NOTE | 2019-06-06 13:46 | NUR ---
PT TO RM 1, REPORT TO JENNIE STEWART. PT DENIES ANY NEEDS OR CONCERNS AT THIS TIME. PT CARE RESPONSIBLITIES HANDED OFF.
[2019-06-06] MEDS ORDERED: OXYcodone/APAP 5/325MG TABLET PO ONE (14:00)
[2019-06-06 14:16] LABS: BASOPHILS # (AUTO) 0.03 x10^3/uL (0-0.1); BASOPHILS % (AUTO) 0 % (0-1); EOSINOPHILS % (AUTO) 0 % (1-7); LYMPHOCYTES # (AUTO) 1.16 x10^3/uL (1-3.4); LYMPHOCYTES % (AUTO) 15 % (22-44); MD NO; MEAN CORPUSCULAR HEMOGLOBIN 34.6 pg (27.5-34.5); MEAN CORPUSCULAR HGB CONC 34.1 g/dL (33.2-36.2); MEAN CORPUSCULAR VOLUME 101.4 fL (81-97); MEAN PLATELET VOLUME 7.7 fL (7.4-10.4); MONOCYTES # (AUTO) 0.98 x10^3/uL (0.2-0.8); MONOCYTES % (AUTO) 13 % (2-9); NEUTROPHILS % (AUTO) 72 % (42-75); PLATELET COUNT 326 x10^3/uL (130-400); RED BLOOD COUNT 4.09 x10^6/uL (4.38-5.82); RED CELL DISTRIBUTION WIDTH 14.1 % (9.4-14.8)
[2019-06-06 14:23] LABS: ALBUMIN 4.1 g/dL (3.4-5.0); ANION GAP 9 mmol/L (5-15); CALCIUM 9.4 mg/dL (8.5-10.1); CHLORIDE 98 mmol/L (98-107); CREATININE 0.68 mg/dL (0.7-1.3)
[2019-06-06] MEDS ORDERED: OXYcodone/APAP 5/325MG TABLET ONE (14:28)
[2019-06-06 15:56] VITALS: BP 124/66
--- NOTE | 2019-06-06 15:57 | NUR ---
PT REPORTS PAIN IMPROVEMENT FROM A 8 TO A 2.
== END 2019-06-06 16:27 | disposition home or self-care (01) ==
LOC: ED 13:55
DX: S22.42XA Multiple fractures of ribs, left side, initial encounter for closed fracture (principal); J44.9 Chronic obstructive pulmonary disease, unspecified; W18.30XA Fall on same level, unspecified, initial encounter; Y93.89 Activity, other specified; Y92.410 Unspecified street and highway as the place of occurrence of the external cause; Y99.8 Other external cause status
CPT/HCPCS: 36415; 74022; 80048; 82040; 85025; 99284

== ENCOUNTER 2019-07-14 10:27 | Emergency (ER) | payer MEDICARE, MEDICAID ==
[~2019-07-14] VITALS: Ht 180.3 cm; Wt 72.4 kg
[2019-07-14 10:31] VITALS: BP 117/60
== END 2019-07-14 10:53 | disposition home or self-care (01) ==
LOC: ED 10:47
DX: R51 Headache (principal); Z53.21 Procedure and treatment not carried out due to patient leaving prior to being seen by health care provider

== ENCOUNTER 2020-09-08 14:54 | Emergency (ER) | payer MEDICARE, MEDICAID ==
[~2020-09-08] VITALS: Ht 180.3 cm; Wt 67.0 kg
[~2020-09-08 14:54] MED LIST changes: -FOLI-17 PO; +FOLI1TAB32 PO; +MULT-449 PO; -MULT1TAB60 PO
[2020-09-08] MEDS ORDERED: DEXAMETHASONE 4 MG TABLET PO ONE (15:30)
[2020-09-08] MEDS ORDERED: DEXAMETHASONE 4 MG TABLET ONE (17:20)
[2020-09-08 17:24] VITALS: BP 117/79
[2020-09-08] MEDS ORDERED: KETAMINE 10 MG/ML, 20ML ONE (17:42)
== END 2020-09-08 17:58 | disposition home or self-care (01) ==
LOC: ED 16:36
DX: J02.9 Acute pharyngitis, unspecified (principal); F17.210 Nicotine dependence, cigarettes, uncomplicated
CPT/HCPCS: 87081; 87880; 99283

== ENCOUNTER 2020-11-04 22:11 | Observation (INO) | payer MEDICARE, MEDICAID ==
[~2020-11-04] VITALS: Ht 180.3 cm; Wt 81.4 kg
--- NOTE | 2020-11-04 22:27 | NUR ---
[facility], [facility] STAFF STATED TO EMS THAT PT "SEEMED A LITTLE OFF", PT HAS A HISTORY OF SCHIZOPHRENIA, PT REPORTS NO AUDITORY HALLUCINATIONS BUT IS HAVING VISUAL HALLUCINATIONS, PT RERORTS OF NO PAIN AND HAD NO COMPLAINTS AT THIS TIME, PT RAMBLING ABOUT A FISH TANK, PT REPORTS OF NO SI OR SH
[2020-11-04 22:42] LABS: BASOPHILS % (AUTO) 1 % (0-1); EOSINOPHILS % (AUTO) 9 % (1-7); LYMPHOCYTES % (AUTO) 36 % (22-44); MEAN CORPUSCULAR HEMOGLOBIN 35.6 pg (27.5-34.5); MEAN CORPUSCULAR HGB CONC 34.4 g/dL (33.2-36.2); MEAN PLATELET VOLUME 7.8 fL (7.4-10.4); MONOCYTES % (AUTO) 12 % (2-9); NEUTROPHILS % (AUTO) 42 % (42-75); PLATELET COUNT 133 x10^3/uL (130-400); RED BLOOD COUNT 3.48 x10^6/uL (4.38-5.82); RED CELL DISTRIBUTION WIDTH 12.8 % (9.4-14.8)
[2020-11-04 22:56] LABS: ALBUMIN 3.5 g/dL (3.4-5.0); CALCIUM 8.2 mg/dL (8.5-10.1); SALICYLATE LEVEL 3.8 mg/dL (2.8-20.0)
[2020-11-04] MEDS ORDERED: SODIUM CHLORIDE 0.9% 1,000ML IVBOLUS ONE (23:00)
--- NOTE | 2020-11-04 23:04 | NUR ---
PT HYPOTENSIVE, NOTIFIED AND PT STARTED ON IV FLUIDS, PTS O2 DROPPED TO 86% WHILE ASLEEP SO THIS RN STARTED PT ON 2LPM NASAL CANULA TO MAINTAIN OXYGEN SATURATION, ALL NEEDS IN REACH, CALL LIGHT IN REACH, NAD AT THIS TIME
[2020-11-04 23:27] LABS: ALANINE AMINOTRANSFERASE 40 U/L (12-78); ALKALINE PHOSPHATASE 57 U/L (45-117); ANION GAP 6 mmol/L (5-15); BILIRUBIN,TOTAL 0.3 mg/dL (0.2-1.0); CHLORIDE 100 mmol/L (98-107); CREATININE 0.78 mg/dL (0.7-1.3)
--- NOTE | 2020-11-05 00:02 | NUR ---
PT DIFFICULT TO WAKE UP, PT WAKES UP AND LOOKS AROUND AND GRUNTS AND THEN GOES BACK TO SLEEP, WHEN PT WAKES UP HE DOESNT ANSWER ANY QUESTIONS AND JUST BACK TO SLEEP, PT HYPOTENSIVE AT 85/55 THIS RN WILL START PT ON SECOND LITER OF NS, SIDE RAILS UP, CALL LIGHT IN REACH
--- NOTE | 2020-11-05 00:04 | NUR ---
THIS RN TRIED A STERNAL RUB ON PT AND PT WOKE UP AND SAID, "HEY CAN YOU STOP THAT" AND THEN WENT BACK TO SLEEP
--- NOTE | 2020-11-05 00:22 | NUR ---
FLOAT RN AT BEDSIDE TO RELIEVE PRIMARY RN FOR BREAK. ED MD MADE AWARE OF PT'S BP. PT ON CONTINUOUS SPO2 AND CARDIAC MONITORING. IV FLUIDS INFUSING. AWAITING FURTHER ORDERS.
--- NOTE | 2020-11-05 00:30 | NUR ---
PT CONDITION DISCUSSED WITH ED MD. TO ORDER LABS, HEAD CT, AND ADDITIONAL FLUID BOLUS.
--- NOTE | 2020-11-05 00:43 | NUR ---
BEDSIDE REPORT TO PRIMARY RN, MICK.
--- NOTE | 2020-11-05 00:52 | NUR ---
PT LAYING IN BED, PT WOKEN UP FOR EKG, PT EASIER TO WAKE UP NOW, PT A/OX3, EKG DONE BY ENGAGEMENT ENGINEER, ORDERED CT AND BLOOD CULTURES, PT NOT REPORTING ANY COMPLAINTS, PTS BLOOD PRESSURE DOING BETTER AFTER 3 LITERS BOLUS
[2020-11-05] MEDS ORDERED: SODIUM CHLORIDE 0.9% 1,000ML IVBOLUS ONE (01:00)
--- NOTE | 2020-11-05 01:14 | NUR ---
PT ASLEEP IN BED, ALL NEEDS IN REACH, CALL LIGHT IN REACH, NAD AT THIS TIME, PENDING LABS AND CT, VSS
[2020-11-05 01:30] LABS: TROPONIN I < 0.015 ng/mL (0.000-0.045)
--- NOTE | 2020-11-05 01:30 | NUR ---
Pt altered, dropped sats to 82% on 2L NC, increased to 4L w/ no change, pt titrated to 6L via NC, O2 sats normalized. Pt IVF bolus completed, BP normotensive. Continues to be altered and non compliant with care. Pt was straight cathed for urine specimen. Updated MD Mccullough on pts hypoxemia and increased O2 demand. Reccs for IV Narcan admistration, MD Mccullough agreed. IV Narcan ordered and administered, no response, or acute positive change in mental status for patient. Will continue to assess. Pt denies needs currently.
[2020-11-05 01:54] LABS: MICROSCOPIC NOT IND
[2020-11-05] MEDS ORDERED: NALOXONE 1 MG/ML, 2ML IVPush ONE (02:00)
[2020-11-05 02:07] LABS: AMPHETAMINE SCREEN, URINE Negative (Negative); BARBITURATE SCREEN, URINE Negative (Negative); BENZODIAZEPINE SCREEN, URINE Positive (Negative); CANNABINOID SCREEN, URINE Negative (Negative); COCAINE SCREEN, URINE Negative (Negative); METHADONE SCREEN, URINE Negative (Negative); OPIATE SCREEN, URINE Negative (Negative)
--- NOTE | 2020-11-05 03:05 | NUR ---
Report given to JENNIE Ham
[2020-11-05] MEDS ORDERED: ONDANSETRON 2MG/ML, 2ML IVPush PRN (03:30)
[2020-11-05] MEDS ORDERED: FLUMAZENIL 0.1 MG/1 ML, 5ML IVPush ONE (03:30)
[2020-11-05] MEDS ORDERED: ACETAMINOPHEN 325 MG TABLET PO PRN (03:30)
[2020-11-05] MEDS ORDERED: DOCUSATE 100 MG CAPSULE PO PRN (03:30)
[2020-11-05] MEDS ORDERED: IBUPROFEN 600 MG TABLET PO PRN (03:30)
[2020-11-05] MEDS ORDERED: LACTATED RINGERS 1,000 ML IV SCH (03:30)
[2020-11-05] MEDS ORDERED: ENOXAPARIN 40 MG/0.4 ML SQ SCH (03:30)
[2020-11-05] MEDS ORDERED: ENALAPRILAT 1.25 MG/ML, 2ML IVPush PRN (03:30)
[2020-11-05 04:00] VITALS: BP 116/76
[2020-11-05 07:03] VITALS: BP 100/62
[2020-11-05] MEDS ORDERED: BUPROPION 75 MG TABLET PO SCH (13:00)
[2020-11-05] MEDS ORDERED: HYDROXYZINE PAMOATE 50MG CAP PO PRN (13:00)
[2020-11-05] MEDS ORDERED: BUPR75TA6 PO (13:41)
[2020-11-05] MEDS ORDERED: HYDR50CA2 PO (13:41)
[2020-11-05] MEDS ORDERED: ARIP15TA3 PO (13:41)
[2020-11-05] MEDS ORDERED: ARIPIPRAZOLE 15 MG TABLET PO SCH (21:00)
== END 2020-11-05 16:27 | disposition home or self-care (01) ==
LOC: ED 22:37 → EDIP 11-05 02:33 → INTOOBSV 11-05 02:33 → 4EST 11-05 03:48 → UNDODISIN 11-05 16:27
PROVIDERS: ADMIT Internal Medicine; ATTEND Hospitalist
DX: G92 Toxic encephalopathy (principal); J96.01 Acute respiratory failure with hypoxia; F25.9 Schizoaffective disorder, unspecified; D53.9 Nutritional anemia, unspecified; E87.1 Hypo-osmolality and hyponatremia; Z91.5 Personal history of self-harm; Z79.899 Other long term (current) drug therapy
CPT/HCPCS: 36415; 70450; 71045; 80053; 80299; 80307; 80320; 80329; 81003; 83605; 83880; 84145; 84443; 84484; 85025; 87040; 93005; 96361; 96372; 96374; 96375; 99285; G0378; J1650; J2310; J7030; J7120; G0480